=== PATIENT | female | born 1990 | race Two or more races ===

== ENCOUNTER 2020-02-12 02:00 | Inpatient (IN) | payer OTHER ==
[~2020-02-12] VITALS: Ht 162.6 cm; Wt 74.8 kg
[2020-02-12] MEDS ORDERED: PRENATAL TABLE1 EAC1 PO (03:02)
== END 2020-02-14 17:04 | disposition home or self-care (01) | DRG 807 ==
LOC: LDR 02:00 → OB/GYN 02:00
PROVIDERS: ADMIT Obstetrics & Gynecology; ATTEND Obstetrics & Gynecology
PROC: 10E0XZZ Delivery of Products of Conception, External Approach (ICD-10-PCS; principal; 2020-02-12)
PROC: 4A1HXCZ Monitoring of Products of Conception, Cardiac Rate, External Approach (ICD-10-PCS; 2020-02-12)
DX: O80 Encounter for full-term uncomplicated delivery (principal); Z37.0 Single live birth; Z3A.38 38 weeks gestation of pregnancy; Z20.828 Contact with and (suspected) exposure to other viral communicable diseases

== ENCOUNTER 2022-01-13 06:40 | Inpatient (IN) | payer OTHER ==
[~2022-01-13] VITALS: Ht 162.6 cm; Wt 82.1 kg
[~2022-01-13 06:40] MED LIST: PRENATAL TABLE1 EAC1 PO
== END 2022-01-15 14:22 | disposition home or self-care (01) | DRG 807 ==
LOC: LDR 06:40 → OB/GYN 15:14
PROVIDERS: ADMIT Obstetrics & Gynecology; ATTEND Obstetrics & Gynecology
PROC: 10E0XZZ Delivery of Products of Conception, External Approach (ICD-10-PCS; principal; 2022-01-13)
PROC: 4A1HXCZ Monitoring of Products of Conception, Cardiac Rate, External Approach (ICD-10-PCS; 2022-01-13)
DX: O99.820 Streptococcus B carrier state complicating pregnancy (principal); Z37.0 Single live birth; Z3A.39 39 weeks gestation of pregnancy; Z20.822 Contact with and (suspected) exposure to COVID-19